=== PATIENT | male | born 1945 ===

== ENCOUNTER 2022-12-06 15:40 | Outpatient (CLI) | payer OTHER ==
[~2022-12-06 15:40] MED LIST: D & C GREEN #61 GM; DILTIAZEM ER360 M1 PO; GLIMEPIRIDE4 M1 PO; METFORMIN HCL750 MG PO; VASOTEC20 MG PO; ZOCOR40 MG PO
== END 2022-12-06 15:47 | disposition home or self-care (01) ==
LOC: TOM 15:40
PROVIDERS: ATTEND Urology
DX: C67.9 Malignant neoplasm of bladder, unspecified (principal)

== ENCOUNTER 2022-12-07 05:18 | Inpatient (IN) | payer OTHER ==
[~2022-12-07] VITALS: Ht 177.8 cm; Wt 83.5 kg
== END 2022-12-08 14:06 | disposition home or self-care (01) | DRG 667 ==
LOC: CIR.AMB 05:18 → SURG 11:43
PROVIDERS: ADMIT Urology; ATTEND Urology
PROC: 0TBB8ZX Excision of Bladder, Via Natural or Artificial Opening Endoscopic, Diagnostic (ICD-10-PCS; 2022-12-07)
PROC: 0VT08ZZ Resection of Prostate, Via Natural or Artificial Opening Endoscopic (ICD-10-PCS; principal; 2022-12-07 07:00)
DX: D09.0 Carcinoma in situ of bladder (principal); N40.0 Benign prostatic hyperplasia without lower urinary tract symptoms; Z20.822 Contact with and (suspected) exposure to COVID-19

== ENCOUNTER 2023-05-17 07:20 | Day surgery (SDC) | payer OTHER ==
[~2023-05-17] VITALS: Ht 177.8 cm; Wt 84.4 kg
== END 2023-05-17 19:05 | disposition home or self-care (01) ==
LOC: CIR.AMB 07:20
PROVIDERS: ATTEND Urology
DX: C67.9 Malignant neoplasm of bladder, unspecified (principal); N30.20 Other chronic cystitis without hematuria; N32.89 Other specified disorders of bladder; D41.3 Neoplasm of uncertain behavior of urethra; Z20.822 Contact with and (suspected) exposure to COVID-19